=== PATIENT | female | born 1965 | race Caucasian/White ===

== ENCOUNTER 2016-05-05 20:30 | Emergency (ER) | payer OTHER ==
[~2016-05-05] VITALS: Ht 170.2 cm; Wt 66.2 kg
[~2016-05-05 20:30] MED LIST: KLONOPIN0.5 M1 PO; ZOLOFT50 MG PO
[2016-05-05 21:28] LABS: CHLORIDE 105 mEq/L (99-109); HEMATOCRIT 38.9 % (36.0-46.0); MCHC 33.7 G/DL (30.0-36.0); MEAN PLAT.VOLUME 11.1 uM^3 (9.5-12.4); PLATELET COUNT 210 K/uL (156-360); POTASSIUM 3.6 mEq/L (3.7-5.4); RBC DIS.WIDTH-CV 15.5 % (11.8-14.6); RED BLOOD COUNT 4.37 M/uL (3.80-5.20); SODIUM 141 mEq/L (136-147); WHITE BLOOD COUNT 5.6 K/uL (4.1-10.2)
[2016-05-05 21:31] LABS: GLUCOSE 123 mg/dL (70-99)
[2016-05-05 21:32] LABS: ANION GAP 13 MEQ/L (2-14)
[2016-05-05 21:33] LABS: TOTAL BILIRUBIN 0.4 mg/dL (0.0-1.0)
[2016-05-05 21:34] LABS: ALKALINE PHOSPHATASE 68 IU/L (3-129); GFR ESTIMATE (CALCULATED) > 59 mL/min/
[2016-05-05 21:35] LABS: UREA NITROGEN (BUN) 8 mg/dL (9-23)
[2016-05-05 21:43] LABS: QUANTITATIVE HCG < 4.0 MIU/ML
[2016-05-05 22:19] LABS: LIPASE 17 U/L (1.0-51.0)
[2016-05-05] MEDS ORDERED: BENTYL20 MG PO (22:51)
[2016-05-05] MEDS ORDERED: TRAMADOL HCL50 MG PO (22:59)
[2016-05-05 23:03] VITALS: BP 128/85
== END 2016-05-05 23:04 | disposition home or self-care (01) ==
LOC: EME 20:30
DX: R10.30 Lower abdominal pain, unspecified (principal); R19.7 Diarrhea, unspecified; F17.200 Nicotine dependence, unspecified, uncomplicated
CPT/HCPCS: 74177; 80053; 81003; 83690; 84702; 85027; 99281; 99284; J7030

== ENCOUNTER 2016-09-14 10:45 | Emergency (ER) | payer OTHER ==
[~2016-09-14] VITALS: Ht 170.2 cm; Wt 66.0 kg
[~2016-09-14 10:45] MED LIST changes: +BENTYL20 MG PO; +TRAMADOL HCL50 MG PO
[2016-09-14] MEDS ORDERED: KLONOPIN0.5 M1 PO (13:49)
[2016-09-14 14:01] VITALS: BP 117/86
== END 2016-09-14 14:02 | disposition home or self-care (01) ==
LOC: EME 10:45
DX: F41.9 Anxiety disorder, unspecified (principal); F31.89 Other bipolar disorder; F17.200 Nicotine dependence, unspecified, uncomplicated
CPT/HCPCS: 90839; 99281; 99284